=== PATIENT | male | born 1990 | race African-American/Black ===

== ENCOUNTER 2018-05-17 03:49 | Emergency (ER) | payer SELFPAY ==
[~2018-05-17] VITALS: Ht 177.8 cm; Wt 96.4 kg
[2018-05-17 03:50] VITALS: BP 150/98
== END 2018-05-17 04:23 ==
LOC: EME 03:49
DX: S20.359A Superficial foreign body of unspecified front wall of thorax, initial encounter (principal); Y35.493A Legal intervention involving other sharp objects, suspect injured, initial encounter; Z53.20 Procedure and treatment not carried out because of patient's decision for unspecified reasons
CPT/HCPCS: 99281; 99283